=== PATIENT | male | born 1980 | race Two or more races ===

== ENCOUNTER 2021-07-01 17:48 | Inpatient (IN) | payer OTHER ==
[~2021-07-01] VITALS: Ht 177.8 cm; Wt 118.8 kg
[2021-07-01] MEDS ORDERED: LABETALOL HCL 5 MG/ML 4ML SYRINGE IV ONE (18:30)
[2021-07-01] MEDS ORDERED: ASPirin 325 MG TAB PO ONE (18:45)
[2021-07-01 19:58] LABS: Basophils # (auto) 0.2 10 ^3/uL (0-0.2); Basophils % (auto) 2.2 % (0.0-2.0); Eosinophils # (auto) 0 10 ^3/uL (0-0.8); Eosinophils % (auto) 0.6 % (0.0-7.0); Hematocrit 44.1 % (41.0-53.0); Lymphocytes # (auto) 2.8 10 ^3/uL (0.4-5.4); Lymphocytes % (auto) 38.2 % (10.0-50.0); Mean Corpuscular Hemoglobin 30.7 pg (28.0-32.0); Mean Corpuscular Hgb Conc. 34.1 g/dL (32.0-36.0); Mean Corpuscular Volume 90.1 fL (80.0-100.0); Monocytes # (auto) 0.5 10 ^3/uL (0-1.3); Monocytes % (auto) 7.1 % (0.0-12.0); Neutrophils # (auto) 3.8 10 ^3/uL (1.6-8.6); Neutrophils % (auto) 51.9 % (37.0-80.0); Nucleated Red Blood Cells % 0.1 %; Red Blood Cells 4.89 10^6/uL (4.5-5.90); Red Cell Distribution Width 14.2 % (11.8-14.3); White Blood Cell 7.2 10^3/uL (4.4-10.8)
[2021-07-01 20:10] LABS: Albumin 4.7 g/dL (3.4-5.0); Calcium 8.9 mg/dL (8.5-10.1)
[2021-07-01 20:15] LABS: BUN/Creatinine Ratio 8.9; Bilirubin, Total 0.4 mg/dL (0.2-1.0); Total Protein 8.2 g/dL (6.4-8.2)
[2021-07-01] MEDS ORDERED: MORPHINE SULFATE INJECTION 2 MG/ML SYRG IV PRN (22:45)
[2021-07-01] MEDS ORDERED: NITROGLYCERIN 0.4 MG SL TAB SL PRN (22:45)
[2021-07-01] MEDS ORDERED: cloNIDine HCL 0.1 MG TAB PO PRN (22:45)
[2021-07-01] MEDS ORDERED: ASPirin 81 mg TAB PO ONE (22:45)
[2021-07-02] MEDS: HCTZ 25 MG TAB PO SCH (09:05)
[2021-07-02] MEDS: METOPROLOL SUCCINATE XL 50 MG TAB PO SCH (09:06)
[2021-07-02] MEDS ORDERED: LISINOPRIL 10 MG TAB PO SCH (10:00)
[2021-07-02 13:33] VITALS: BP 143/87
[2021-07-02 14:19] VITALS: BP 143/87
[2021-07-02 16:30] VITALS: BP 144/89
[2021-07-02 22:00] VITALS: BP 143/86
[2021-07-02] MEDS: LISINOPRIL 10 MG TAB PO SCH (23:00)
[2021-07-03 05:00] VITALS: BP 142/85
[2021-07-03 09:08] VITALS: BP 148/90
[2021-07-03] MEDS: HCTZ 25 MG TAB PO SCH (09:56)
[2021-07-03] MEDS ORDERED: ENOXAPARIN SOD 40 MG/0.4 ML SYRINGE SC SCH (10:00)
[2021-07-03] MEDS: METOPROLOL SUCCINATE XL 50 MG TAB PO SCH (10:00)
[2021-07-03] MEDS: LISINOPRIL 10 MG TAB PO SCH ×2 (10:00→12:07)
[2021-07-03] MEDS ORDERED: amLODIPine BESYLATE 5 MG TAB PO SCH (10:00)
[2021-07-03 12:43] VITALS: BP 165/80
[2021-07-03] MEDS ORDERED: LISI20TA28 PO (14:39)
[2021-07-03] MEDS ORDERED: HYDR25TA5 PO (14:39)
[2021-07-03] MEDS ORDERED: AMLO-496 PO (14:39)
[2021-07-03 14:48] VITALS: BP 165/80
[2021-07-03 17:05] VITALS: BP 127/92
[2021-07-03] MEDS ORDERED: LISINOPRIL 20 MG TAB PO SCH (22:00)
== END 2021-07-03 18:20 | DRG 305 ==
LOC: EEVIPCON 18:04 → ER 18:04 → TELE 22:43 → TELE-WESTW 07-02 12:39
PROVIDERS: ADMIT Internal Medicine; ATTEND Internal Medicine
DX: I16.0 Hypertensive urgency (principal); I10 Essential (primary) hypertension; M79.89 Other specified soft tissue disorders; F17.200 Nicotine dependence, unspecified, uncomplicated; R07.89 Other chest pain; Z79.899 Other long term (current) drug therapy; Z82.49 Family history of ischemic heart disease and other diseases of the circulatory system; Z83.3 Family history of diabetes mellitus; Z90.410 Acquired total absence of pancreas; Z91.14 Patient's other noncompliance with medication regimen; Z20.822 Contact with and (suspected) exposure to COVID-19
CPT/HCPCS: 36415; 70450; 71045; 80053; 83880; 84484; 85025; 87426; 93005; 96374; G0378; J3490

== ENCOUNTER 2021-07-04 20:00 | Emergency (ER) | payer OTHER ==
[~2021-07-04] VITALS: Ht 172.7 cm; Wt 117.9 kg
[~2021-07-04 20:00] MED LIST: AMLO-496 PO; HYDR25TA5 PO; LISI20TA28 PO
[2021-07-04] MEDS ORDERED: amLODIPine BESYLATE 5 MG TAB PO ONE (20:15)
[2021-07-04 22:45] VITALS: BP 177/108
[2021-07-04 22:52] LABS: Basophils # (auto) 0.2 10 ^3/uL (0-0.2); Basophils % (auto) 1.8 % (0.0-2.0); Eosinophils # (auto) 0 10 ^3/uL (0-0.8); Eosinophils % (auto) 0.6 % (0.0-7.0); Hematocrit 46.2 % (41.0-53.0); Hemoglobin 15.6 g/dL (13.5-17.5); Lymphocytes # (auto) 3.1 10 ^3/uL (0.4-5.4); Lymphocytes % (auto) 37.4 % (10.0-50.0); Mean Corpuscular Hemoglobin 30.4 pg (28.0-32.0); Mean Corpuscular Hgb Conc. 33.7 g/dL (32.0-36.0); Mean Corpuscular Volume 90.3 fL (80.0-100.0); Monocytes # (auto) 0.7 10 ^3/uL (0-1.3); Monocytes % (auto) 8.2 % (0.0-12.0); Neutrophils # (auto) 4.3 10 ^3/uL (1.6-8.6); Nucleated Red Blood Cells % 0.1 %; Red Blood Cells 5.12 10^6/uL (4.5-5.90); Red Cell Distribution Width 14.2 % (11.8-14.3); White Blood Cell 8.2 10^3/uL (4.4-10.8)
[2021-07-04 23:11] LABS: Albumin 4.6 g/dL (3.4-5.0); Calcium 9.2 mg/dL (8.5-10.1); Potassium 3.8 mmol/L (3.5-5.1)
[2021-07-04 23:19] LABS: BUN/Creatinine Ratio 13.2; Bilirubin, Total 0.6 mg/dL (0.2-1.0); Total Protein 8.3 g/dL (6.4-8.2)
== END 2021-07-04 23:12 ==
LOC: EDBD 20:00 → EEVIPCON 20:05 → ER 20:05
DX: I10 Essential (primary) hypertension (principal); R07.89 Other chest pain; R42 Dizziness and giddiness; Z20.822 Contact with and (suspected) exposure to COVID-19
CPT/HCPCS: 36415; 71045; 80053; 84484; 85025; 87426; 93005